=== PATIENT | male | born 1965 | race Caucasian/White ===

== ENCOUNTER 2016-12-17 12:48 | Observation (INO) ==
[2016-12-17] MEDS ORDERED: ASPIRIN PO STA (13:10)
--- NOTE | 2016-12-17 13:23 | EKG Report ---
Test Performed on : 12/17/2016 12:48:52 PM Test Reason : CP Blood Pressure : / mmHG Vent. Rate : 062 BPM Atrial Rate : 062 BPM P-R Int : 110 ms QRS Dur : 156 ms QT Int : 468 ms P-R-T Axes : 018 166 083 degrees QTc Int : 475 ms Atrial-sensed ventricular-paced rhythm Abnormal ECG No previous ECGs available Unconfirmed Result
[2016-12-17 13:25] LABS: MANUAL DIFF NEEDED? NO
[2016-12-17 13:30] LABS: BASO% 1.1 % (0.0-0.8); EOS# 0.05 X1000 (0.0-0.7); EOS% 0.8 % (0.0-10.0); HEMATOCRIT 43.1 % (42.0-52.0); HEMOGLOBIN 14.1 g/dL (14.0-18.0); IMM GRAN# 0.01 X1000 (0.0-0.04); IMM GRAN% 0.2 % (0.0-0.5); LYMPH# 1.03 X1000 (1.2-3.4); LYMPH% 15.9 % (20.5-51.1); MCH 32.9 PG (27-31); MCHC 32.7 g/dL (33-37); MCV 100.7 FL (81-99); MONO# 0.85 X1000 (0.11-0.59); MONO% 13.2 % (1.7-9.3); MPV 11.1 FL (7.4-10.4); NEUT% 68.8 % (42.2-75.2); PLT 203 X1000 (130-400); RBC 4.28 XMIL (4.7-6.1)
[2016-12-17 13:44] LABS: INR 1.03 (0.86-1.15); PROTIME 13.8 Seconds (12.1-15.5)
[2016-12-17 13:45] LABS: PTT PL 36.7 Seconds (22.6-43.9)
[2016-12-17 13:50] LABS: AGAP 12; ALBUMIN 3.8 g/dL (3.5-5.0); ALKALINE PHOSPHATASE 166 U/L (32-122); BUN 15 mg/dL (8-22); CALCIUM 9.4 mg/dL (8.8-10.2); CHLORIDE 100 mmol/L (98-107); CK PROFILE 39 U/L (24-204); COSMO 280; GOT 25 U/L (10-34); GPT 15 U/L (10-44); POTASSIUM 3.9 mmol/L (3.5-5.1); SODIUM 140 mmol/L (136-145); TCO2 29 mmol/L (25-35); TOTAL PROTEIN 8.1 g/dL (6.3-8.3)
--- NOTE | 2016-12-17 14:21 | Diag Imaging Result Document ---
PROCEDURE NAME: CHEST-PORTABLE - 12/17/2016 PORTABLE CHEST: COMPARISON: 11/25/2016. FINDINGS: The lungs are well expanded. The patient has a left sided pacemaker. The heart is not enlarged considering the AP technique. The vessels are not distended. No pneumonia. No pleural effusions identified. IMPRESSION: Negative chest.
[2016-12-17] MEDS ORDERED: TYLENOL PO ONE (14:46)
--- NOTE | 2016-12-17 16:30 | Diag Imaging Result Document ---
PROCEDURE NAME: ANGIOGRAM/PULMONARY ARTERIES - 12/17/2016 CT CHEST WITH INTRAVENOUS CONTRAST: FINDINGS: There is normal opacification of the pulmonary arteries and their major branches. No thoracic aortic aneurysm or dissection. The heart is borderline mildly prominent. No pleural effusions. No enlarged mediastinal or hilar lymph nodes. No infiltrates. No bronchiectasis. There is a left sided pacemaker. IMPRESSION: 1. No pulmonary emboli. 2. No pneumonia. 3. Mildly prominent heart. A preliminary report was given at 3:22 p.m.
--- NOTE | 2016-12-17 16:50 | PROVIDER DOCUMENTATION ---
This chart was entered by Noe Aguilar Scribe, acting as scribe for Rober Carroll MD. HPI-Chest Pain - General Chief Complaint: Chest Pain Stated Complaint: CHEST PAIN Time Seen by Provider: 12/17/16 13:06 Source: family Allergies/Adverse Reactions: Patient Allergies Allergy/AdvReac Type Severity Reaction Status Date / Time cephalexin monohydrate * AdvReac RASH Verified 12/17/16 12:59 [From [facility]] Home Medications: Home Medication List Medication Instructions Recorded Confirmed Last Taken Type Allopurinol 100 mg PO DAILY 07/06/14 07/06/14 Unknown History Cyclobenzaprine [Flexeril] 10 mg PO TID PRN #20 tablet 07/06/14 Unknown Rx Hydrocodone/APAP 5 mg/325 mg 1 - 2 tab PO Q6H PRN PRN #18 tablet 07/06/14 Unknown Rx [Warren-5] Levothyroxine Sodium [Synthroid] 112 mcg PO DAILY 07/06/14 07/06/14 07/06/14 History Naproxen 500 mg PO BID AC #60 tablet 07/06/14 Unknown Rx Naproxen 500 mg PO PRN PRN 07/06/14 07/06/14 Unknown History - History of Present Illness-CP Nature of Presenting Problem: patient is a 51 yo M that presents with left side of chest pain that began last pm. Mom gave him Tylenol in which seemed to help with pain, today he was with family in [place] and started to complain of left arm pain and had a near syncopal episode. patient has pacermaker due to slow heart rate. No shortness of breath, n/v, or sweating. Location: reports: other (left sided) Chest Pain Radiation: reports: arms (left) Quality of Pain: reports: sharp Severity in ED: mild, moderate Onset/Duration: gradual, last week Timing: still present, intermittent Context/Activities at Onset: reports: none Modifying Factors: improves with: nothing Associated Symptoms: denies: abdominal pain, back pain, fatigue, fever/chills, nausea, shortness of breath, vomiting Nitro Today/Relief: no nitro taken today Prior Chest Pain/Cardiac Workup: reports: other (pacemaker) Similar Symptoms Previously?: No Recently Seen Here or By Another Healthcare Provider: No Review of Systems - Adult - REVIEW OF SYSTEMS - ADULT ROS:: ROS per family Constitutional: denies: chills, fever Eyes: reports: no symptoms reported Ears, Nose, Mouth & Throat: denies: ear pain, sinus problem, throat pain, throat swelling Cardiovascular: reports: chest pain, syncope (near). denies: palpitations Respiratory: denies: cough, shortness of breath, wheezing Gastrointestinal: denies: abdominal pain, diarrhea, nausea, vomiting Genitourinary: reports: no symptoms reported Musculoskeletal: reports: bone pain. denies: back pain, neck pain Integumentary: reports: no symptoms reported Neurological: reports: syncope (near). denies: dizziness/vertigo, headache/ migraines Psychiatric: reports: no symptoms reported Endocrine: reports: no symptoms reported Hematologic/Lymphatic: reports: no symptoms reported Allergic/Immunologic: reports: no symptoms reported All Other Systems: Reviewed and Negative Past History - Adult - PAST MEDICAL HISTORY-ADULT Review of Records: reports: Old Records Reviewed, Nursing Assessment Review, Medications Reviewed Cardiovascular: reports: CHF Neurological: reports: other (down syndrome) Endocrine/Immune: reports: thyroid disorder Other Conditions: reports: other (gout) - PRIOR SURGERIES/PROCEDURES Surgical/Procedure History: reports: pacemaker, hernia repair - IMMUNIZATION STATUS Childhood Immunizations: See Nurse Assessment Flu Vaccine: See Nurse Assessment - FAMILY HISTORY Family History: reviewed, not pertinent - SOCIAL HISTORY Smoking: non-smoker Living Situation: family Physical Exam-General - PHYSICAL EXAM-ADULT Initial Vital Signs Reviewed: Yes - CONSTITUTIONAL General Appearance: alert, no apparent distress - EYES Eyes: PERRL/EOMI, pink conjunctivae - HEAD, EARS, NOSE, MOUTH & THROAT HENMT: normocephalic/atraumatic, moist mucous membranes, normal ENT inspection - NECK Neck: full range of motion, normal inspection - RESPIRATORY Respiratory: lungs clear, normal breath sounds, no respiratory distress, no accessory muscle use - CARDIOVASCULAR Cardiovascular: regular rate, rhythm, no edema, no murmur, other (pacemaker noted to left upper chest wall) - GASTROINTESTINAL (ABDOMEN) Abdominal Exam: normal bowel sounds, non tender, soft - MUSCULOSKELETAL Extremity: normal range of motion, normal capillary refill - SKIN Integumentary: normal color, warm/dry - NEUROLOGIC Neurologic: grossly normal, no motor/sensory deficits - PSYCHIATRIC Psych/Mental Status: other (normal for his baseline) Progress - PLAN OF CARE/RESULTS Progress/Plan/Lab Results: Vital Signs - 8 hr 12/17/16 12:51 Pulse Rate 60 Respiratory Rate 18 Blood Pressure 118/62 O2 Sat by Pulse Oximetry 98 Laboratory Results - last 24 hr 12/17/16 12/17/16 12/17/16 12:54 12:54 12:54 WBC RBC Hgb Hct MCV MCH MCHC RDW Std Deviation Plt Count MPV Immature Gran % (Auto) Neut % (Auto) Lymph % (Auto) Banner % (Auto) Eos % (Auto) Baso % (Auto) Immature Gran # (Auto) Neut # (Auto) Lymph # (Auto) Banner # (Auto) Eos # (Auto) Baso # (Auto) PT INR APTT (Factor Assay) D-Dimer Sodium 140 Potassium 3.9 Chloride 100 Carbon Dioxide 29 Anion Gap 12 BUN 15 Creatinine 1.0 Estimated GFR/1.73 m2 > 60 BUN/Creatinine Ratio 15 Glucose 103 Calculated Osmolality 280 Calcium 9.4 Magnesium 2.0 Total Bilirubin 2.00 H AST 25 ALT 15 Alkaline Phosphatase 166 H Creatine Kinase 39 Troponin T < 0.010 [id number]-Jezyppkjsvk Pept 72 Total Protein 8.1 Albumin 3.8 Globulin 4.0 Albumin/Globulin Ratio 1.0 12/17/16 12/17/16 12/17/16 12:54 12:54 15:25 WBC 6.46 RBC 4.28 L Hgb 14.1 Hct 43.1 MCV 100.7 H MCH 32.9 H MCHC 32.7 L RDW Std Deviation 13.7 Plt Count 203 MPV 11.1 H Immature Gran % (Auto) 0.2 Neut % (Auto) 68.8 Lymph % (Auto) 15.9 L Banner % (Auto) 13.2 H Eos % (Auto) 0.8 Baso % (Auto) 1.1 H Immature Gran # (Auto) 0.01 Neut # (Auto) 4.45 Lymph # (Auto) 1.03 L Banner # (Auto) 0.85 H Eos # (Auto) 0.05 Baso # (Auto) 0.07 PT 13.8 INR 1.03 APTT (Factor Assay) 36.7 D-Dimer 1.54 H Sodium Potassium Chloride Carbon Dioxide Anion Gap BUN Creatinine Estimated GFR/1.73 m2 BUN/Creatinine Ratio Glucose Calculated Osmolality Calcium Magnesium Total Bilirubin AST ALT Alkaline Phosphatase Creatine Kinase 32 Troponin T Qav-P-Hjtmpnwphse Pept Total Protein Albumin Globulin Albumin/Globulin Ratio 12/17/16 15:25 WBC RBC Hgb Hct MCV MCH MCHC RDW Std Deviation Plt Count MPV Immature Gran % (Auto) Neut % (Auto) Lymph % (Auto) Banner % (Auto) Eos % (Auto) Baso % (Auto) Immature Gran # (Auto) Neut # (Auto) Lymph # (Auto) Banner # (Auto) Eos # (Auto) Baso # (Auto) PT INR APTT (Factor Assay) D-Dimer Sodium Potassium Chloride Carbon Dioxide Anion Gap BUN Creatinine Estimated GFR/1.73 m2 BUN/Creatinine Ratio Glucose Calculated Osmolality Calcium Magnesium Total Bilirubin AST ALT Alkaline Phosphatase Creatine Kinase Troponin T < 0.010 [id number]-B-Voqdbprvjor Pept Total Protein Albumin Globulin Albumin/Globulin Ratio Orders Category Date Time Status Cardiac Monitoring DIRECTED Care 12/17/16 13:11 Active Saline Loc NOW Care 12/17/16 13:11 Active ANGIOGRAM/PULMONARY ARTERIES [CT] Stat Exams 12/17/16 14:39 Draft CHEST-PORTABLE [RAD] Stat Exams 12/17/16 13:10 Completed CBC WITH ELECTRONIC DIFF [HEME] Stat Lab 12/17/16 12:54 Completed CK PROFILE [SP CHEM] Stat Lab 12/17/16 12:54 Completed CK PROFILE [SP CHEM] Stat Lab 12/17/16 15:25 Completed COMPREHENSIVE METABOLIC PANEL [CHEM] Stat Lab 12/17/16 12:54 Com[address] D-DIMER PL [COAG] Stat Lab 12/17/16 12:54 Completed MAGNESIUM [CHEM] Stat Lab 12/17/16 12:54 Completed MISCELLANEOUS TEST-LAB [RF] Stat Lab 12/17/16 13:10 Ordered PRO B-NATRIURETIC PEPTIDE Stat Lab 12/17/16 12:54 Completed PROTIME WITH INR PL [COAG] Stat Lab 12/17/16 12:[address] [COAG] Stat Lab 12/17/16 12:54 Completed TROPONIN T Stat Lab 12/17/16 12:54 Completed TROPONIN T Stat Lab 12/17/16 15:25 Completed Acetaminophen [Tylenol] Med 12/17/16 14:46 Discontinued 1,000 mg PO NOW ONE Aspirin Med 12/17/16 13:10 Discontinued 325 mg PO STAT STA EKG [EKG] Stat Ther 12/17/16 13:[address] rep came and interrogated Pacer, no events and pacer working Result Diagrams: 12/17/16 12:54 12/17/16 12:54 - EKG 1 Time of EKG reading by physician:: 12:48 EKG Read and Signed by:: Rober Carroll EKG Interpretation (*Must complete 3 of following elements*): Abnormal Rate: 62 Rhythm: atrial paced rhythm QRS: normal ST Wave: normal Comments: non-diagnostic EKG - XRAY 1 XRAY Study: Chest Impression: Normal XRAY Interpretation: neg - CT/MRI 1 CT Study: Angiogram (PE study) Impression: Abnormal CT Results: No PE, No PNA, mildly prominent heart - CONSULTS/PCP/HOSPITALIST Notification #1 *Consult/PCP/Hospitalist*: ( immigration guard for hospitalist) Time Discussed: 16:42 Consult Disposition: Admit Departure - Departure Time of Disposition Decision: 16:42 DIAGNOSIS: Near syncope, Down syndrome, Chest pain in adult Disposition: ADMITTED INPATIENT 09 Certified Medical Emergency: Emergent Condition: Stable Referrals and Follow-Ups: South Neumann MD [Primary Care Provider] - - Critical Care Note This patient required my direct & personal management of CC.: No This chart was documented by the indicated scribe, (Noe Aguilar, Scribe) and accurately reflects the services I performed and decisions made by me, Rober Carroll MD, as attested by the provider's signature.
[2016-12-17] MEDS ORDERED: NAPROSYN PO PRN (20:52)
[2016-12-18 06:54] LABS: HEMOGLOBIN 13.2 g/dL (14.0-18.0); MCH 33.4 PG (27-31); MCV 101.3 FL (81-99); MPV 11.1 FL (7.4-10.4); RBC 3.95 XMIL (4.7-6.1)
[2016-12-18] MEDS ORDERED: SYNTHROID PO SCH (07:00)
[2016-12-18 07:35] LABS: AGAP 11; BUN 13 mg/dL (8-22); CALCIUM 8.6 mg/dL (8.8-10.2); CHLORIDE 101 mmol/L (98-107); COSMO 281; POTASSIUM 3.4 mmol/L (3.5-5.1); SODIUM 140 mmol/L (136-145); TCO2 27 mmol/L (25-35)
--- NOTE | 2016-12-18 08:45 | DISCHARGE SUMMARY ---
ADMISSION DATE: 12/17/2016 DISCHARGE DATE: DISCHARGE DIAGNOSES: 1. Chest pain, resolved. 2. Hypothyroidism. 3. B12 deficiency. 4. Down's syndrome. 5. Peripheral artery disease. CONSULTATIONS: None. PROCEDURES: Echocardiogram. BRIEF HOSPITAL COURSE: Patient is a 51-year-old male, who is admitted as noted in the history of present illness and treated in the usual fashion. Ruled out for a myocardial infarction. Thankfully, his enzymes were negative. He did undergo ultrasound. Results are pending at discharge. 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 We will continue his home medications. No other changes were made. TIME SPENT: Thirty-five minutes was spent in discharge planning and instructions. As patient's symptoms resolved, he did not have a stress test as he would be unable to walk on the treadmill and the parents did not want subject him to a chemical stress test at this point. cc: Lit Marks MD
--- NOTE | 2016-12-18 12:52 | ECHO REPORT ---
ORDER DATE: 12/18/2016 INDICATIONS: Syncope, Down syndrome, history of congenital heart defect (undocumented on the chart). FINDINGS: 1. The right atrium appears to be normal in size at 3.3 cm. Linear artifact is visualized in the right heart chambers consistent with likely device leads. 2. Trace tricuspid regurgitation. RV systolic pressure of 34. 3. Normal RV size and systolic function. 4. No significant pulmonic insufficiency. 5. Normal left atrial size at 3.3 cm. 6. No mitral prolapse. There is mild to moderate mitral regurgitation. 7. Normal LV size, end-diastolic dimension of 4.5. Normal wall thicknesses with a posterior and interventricular septal wall thickness of 0.9 cm each. Normal LV systolic function. Calculated EF of 63% with normal wall motion. 8. Aortic valve opens well, appears trileaflet. There is mild aortic insufficiency with no evidence of stenosis. 9. Aorta appears normal in visualized segments. 10. No pericardial effusion is identified. cc: MD Sun Fuchs CRNP
[2016-12-19 13:38] VITALS: BP 100/52
--- NOTE | 2017-01-02 17:27 | HISTORY AND PHYSICAL ---
CHIEF COMPLAINT: Chest pain. HISTORY OF PRESENT ILLNESS: Patient is a 51-year-old male, who has a known history of Down syndrome. His parents brought him to the emergency department complaining of chest pain that began the night prior to presentation to the ER. The pain continued to worsen. Mom had given him some Tylenol and thought the pain was getting better but unfortunately it returned and therefore they brought him to the ER. It is noted that today he was in [employer] and started complaining of pain in his chest and left arm, and they thought he was going to pass out so they made him sit down. Denied any knowledge of shortness of breath, nausea or vomiting. Denies any sweating. Does have a pacemaker due to bradycardia. ALLERGIES: Keflex causing a rash. MEDICATIONS: Allopurinol, cyclobenzaprine, [place] p.r.n., Synthroid 112, Naprosyn. REVIEW OF SYSTEMS: Complains of pain in his chest and left arm. Denies any fevers, chills, back pain. Denies any urinary complaints. Denies any diarrhea, constipation, or melena. PAST MEDICAL HISTORY: Congestive heart failure, Down's syndrome, hypothyroidism, gout, history of pacemaker placement, history of hernia repair. FAMILY HISTORY: Noncontributory. SOCIAL HISTORY: Lives at home with his parents. He does not smoke or drink. PHYSICAL EXAM: VITAL SIGNS: He is afebrile. Pulse 60, respiratory rate 18, BP 118/62. GENERAL: Patient is awake, alert. He is in no respiratory distress. He is pleasant to talk with. NECK: Supple. CV: Regular rate. CHEST: Clear and nonlabored. ABDOMEN: Soft, nondistended. EXTREMITIES: Moves all extremities. NEUROLOGIC: No focal changes. SKIN: Warm and dry, no rashes. DIAGNOSTIC DATA: Labs: First set of cardiac enzymes are negative. CMP is negative. CBC normal with an MCH of 100. D-dimer elevated at 1.5. CTA is negative for pulmonary emboli. ASSESSMENT: 1. Chest pain. Certainly appears noncardiac in nature but Mr. Nagy has some risk factors for heart disease given age, Down syndrome, congestive heart failure. 2. Down syndrome. 3. Gout. 4. Hypothyroidism. PLAN: We will admit patient to the hospital. IV fluids. Rule out for an SD. Further orders as needed. cc: Lit Marks MD
== END 2016-12-18 14:50 | disposition home or self-care (01) ==
LOC: P.MEDSURG 12:48 → P.ED 12:48
PROVIDERS: ATTEND Family Medicine